=== PATIENT | male | born 1960 | race Caucasian/White ===

== ENCOUNTER → 2018-07-05 13:03 | Outpatient (CLI) | payer OTHER, SELFPAY ==
[2018-07-05 13:01] VITALS: BMI 27.0
--- NOTE | 2018-07-05 13:12 | RAD_ITS ---
STUDY: X-RAY - RIGHT SHOULDER REASON FOR EXAM: Male, 58 years old. Pain following injury. TECHNIQUE: 4 view(s) of the shoulder. COMPARISON: None. FINDINGS: There is mild degenerative arthrosis of the glenohumeral articulation. Normal acromioclavicular joint. Normal acromion. Normal humeral head and visualized proximal humerus. The soft tissue structures are unremarkable. Normal visualized pulmonary apex. RAD/Shoulder min 2 Views IMPRESSION: Mild degree of degenerative changes of the glenohumeral joint. Electronically Signed: Jose Antonio Franco MD at 13:46 EST , Service support ,
== END ==
PROVIDERS: Family Provider Family Medicine; Referring Provider Physician Assistant Surgical; Visit Provider Physician Assistant Surgical
DX: S46.911A Strain of unspecified muscle, fascia and tendon at shoulder and upper arm level, right arm, initial encounter (principal)
CPT/HCPCS: 73030

== ENCOUNTER → 2018-07-30 07:40 | Outpatient (CLI) | payer BC, SELFPAY ==
[2018-07-16 17:56] VITALS: BMI 27.0
[2018-07-26 15:20] VITALS: BMI 29.3
--- NOTE | 2018-07-30 07:44 | RAD_ITS ---
STUDY: X-RAY - ESOPHAGUS (BARIUM SWALLOW) WITH FLUOROSCOPY REASON FOR EXAM: Male, 58 years old. Dysphagia. Feeling of fullness. TECHNIQUE: 16 view(s) of the esophagus were obtained following swallowing of barium. FLUOROSCOPY TIME (if supplied): (0:24) minutes/seconds COMPARISON: None. FINDINGS: There is no demonstrated esophageal foreign body. There is no demonstrated stricture or mucosal abnormality. Normal gastroesophageal junction, without a demonstrated hiatal hernia. The patient ingested a 12 mm tablet of barium without any difficulty. There is atherosclerotic calcification of the aortic arch with tortuosity of the descending aorta. Normal visualized pulmonary parenchyma. Normal visualized osseous structures of the thorax. RAD/Esophagus Only IMPRESSION: Normal plain film x-ray examination (barium swallow) of the esophagus. Electronically Signed: Jose Antonio Franco, at 12:41 EST , Service support ,
== END ==
PROVIDERS: Referring Provider Internal Medicine Gastroenterology; Visit Provider Internal Medicine Gastroenterology
DX: R13.10 Dysphagia, unspecified (principal)
CPT/HCPCS: 74220

== ENCOUNTER → 2022-05-09 | Outpatient (CLI) | payer OTHER, SELFPAY ==
--- NOTE | 2022-05-09 12:49 | ART_ITS ---
Reason For Study: other specified peripheral vascular disease Procedure A bilateral lower extremity continuous wave Doppler with analog waveform analysis,segmental pressures,and ankle brachial indexes without exercise. Left Segmental Pressures Left brachial= 147mmHg. Left thigh = 93mmHg. Left calf = 102mmHg. Left posterior tibial artery = 103mmHg. Left dorsalis pedis artery = 89mmHg. The left dorsalis pedis waveforms are monophasic. The left posterior tibial artery waveforms are biphasic. Right Segmental Pressures Right brachial= 142mmHg. Right posterior tibial artery = 180mmHg. Right dorsalis pedis artery = 177mmHg. Right digit = 63 mmHg. The right dorsalis pedis waveforms are triphasic. The right posterior tibial artery waveforms are triphasic. Indices The right ankle brachial index by the dorsalis pedis is 1.2. The right ankle brachial index by the posterior tibial artery is 1.22. The right digital-brachial index is .43. The left ankle brachial index by the dorsalis pedis is .61. The left ankle brachial index by the posterior tibial artery is .7. VL/Lower Ext Art Exam w/o Exercis Interpretation Summary Right JHONATAN 1.22, normal. Doppler/PVR waveforms of the right leg normal at rest. TBI and digit waveforms diminished, pedal/digit disease vs spasm Left JHONATAN 0.7, moderate arterial insuffiencey. Doppler/PVR waveforms and segment al pressures reveal [id number] disease Ordering Physician: Stevie Eagle Performed By: Tre Arauz, RVT
== END | disposition home or self-care (01) ==
PROVIDERS: Visit Provider Student in an Organized Health Care Education/Training Program
DX: I73.89 Other specified peripheral vascular diseases (principal); G57.52 Tarsal tunnel syndrome, left lower limb; G60.0 Hereditary motor and sensory neuropathy
CPT/HCPCS: 93923

== ENCOUNTER → 2022-06-13 | Outpatient (CLI) | payer OTHER, SELFPAY ==
[2022-06-13 13:05] LABS: Creatinine, Serum 0.89 mg/dL (0.70-1.30); EST Glomerular Filtration Rate 92 mL/min (>60); Est Glom Filt Rate - Afr Amer 112 mL/min (>60)
== END | disposition home or self-care (01) ==
LOC: LAB 11:41
PROVIDERS: Referring Provider Physician Assistant; Visit Provider Physician Assistant
DX: I73.9 Peripheral vascular disease, unspecified (principal)
CPT/HCPCS: 36415; 82565

== ENCOUNTER → 2024-05-01 | Outpatient (CLI) | payer MEDICARE, OTHER, SELFPAY ==
--- NOTE | 2024-05-01 07:02 | EKG12_ITS ---
Test Reason : PRE OP Blood Pressure : */* mmHG Vent. Rate : 85 BPM Atrial Rate : 85 BPM P-R Int : 164 ms QRS Dur : 78 ms QT Int : 348 ms P-R-T Axes : 64 64 7 degrees QTcB Int : 414 ms Normal sinus rhythm Cannot rule out Inferior infarct , age undetermined Abnormal ECG Confirmed by Stevie Page ([id number]), visual effects editor CITLALLI FORREST ([id number]) on 05/02/2024 6:43:34 AM Referred By: Waylon Vaughan Confirmed By: Stevie Page
[2024-05-01 07:48] LABS: Absolute Lymphocyte Count 1.77 X10^3/uL (0.83-4.51); Absolute Neutrophil Count 5.6 X10^3/uL (2.0-7.7); Basophil# 0.07 X10^3/uL; Basophil% 0.8 % (0-1); Eosinophils% 2.4 % (0-5); Hematocrit 44.4 % (40-54); Hemoglobin 14.8 g/dL (13.0-16.5); Lymphocyte # 1.77 X10^3/ul (0.83-4.51); Lymphocyte % 20.8 % (19-41); Mean Corp Hgb Conc 33.3 g/dL (32-36); Mean Corpuscular Hgb 31.2 pg (27.0-32.0); Mean Corpuscular Volume 93.5 fL (80-94); Mean Platelet Vol. 10.6 fl (6.2-12.0); Monocyte# 0.86 X10^3/uL; Monocyte% 10.1 % (0-10); NRBC Flagged by Analyzer 0 % (0-5); Neutrophil # 5.55 X10^3/uL (2.7-7.7); Neutrophil % 65.4 % (47-70); Platelet Count 223 K/mm3 (150-450); RBC Distribution Width CV 12.2 % (11.6-14.6); RBC Distribution Width SD 42.5 fl (35.1-43.9); Red Blood Count 4.75 M/mm3 (4.6-6.2); White Blood Count 8.5 K/mm3 (4.4-11.0)
[2024-05-01 08:11] LABS: Anion Gap 5 (5-15); BUN 18 mg/dL (7-18); BUN/Creat Ratio 19.4 RATIO (10-20); Calcium,Total 9.1 mg/dL (8.5-10.1); Chloride 104 mmol/L (98-107); Creatinine, Serum 0.93 mg/dL (0.70-1.30); EST Glomerular Filtration Rate 87 mL/min (>60); Est Glom Filt Rate - Afr Amer 105 mL/min (>60); Glucose 111 mg/dL (74-106); Potassium 4.4 mmol/L (3.5-5.1); Sodium Level 136 mmol/L (136-145)
== END | disposition home or self-care (01) ==
LOC: PSN 06:56
PROVIDERS: Referring Provider Student in an Organized Health Care Education/Training Program; Visit Provider Student in an Organized Health Care Education/Training Program
DX: Z01.818 Encounter for other preprocedural examination (principal); Z01.810 Encounter for preprocedural cardiovascular examination
CPT/HCPCS: 36415; 80048; 85025; 93005

== ENCOUNTER 2024-05-23 11:41 | Day surgery (SDC) | payer MEDICARE, OTHER, SELFPAY ==
--- NOTE | 2024-05-22 11:17 | PAT.ANE_ITS ---
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 When Was Last Pacemaker Check QUESTION #4 FULL TEXT: You/Your Family Experience fever (hyperthermia) with Anesthesia Last Oral Intake Last Oral intake: Last Oral Intake NPO since Meds taken in AM with sips of water? Meds patient instructed to take am of surgery PONV PONV - felling bucking supervisor: PONV - felling bucking supervisor Female No 05/20/24 11:40 HX of Motion Sickness No 05/20/24 11:40 HX of N/V After Surgery No 05/20/24 11:40 Non-Smoker No 05/20/24 11:40 Duration of Surgery greater Yes 05/20/24 11:40 than 60 minutes Number of Risk Factors 1 05/20/24 11:40 PONV Score Low Risk 05/20/24 11:40 Height & Weight Height & Weight: Anesthesia: Height & Weight Height 5 ft 8 in 07/26/18 15:20 Respiratory Assessment Respiratory Assessment - felling bucking supervisor: Respiratory Tract Infection Hx - felling bucking supervisor Hx Respiratory Tract Infection No 05/20/24 11:40 STOP Sleep Apnea STOP Sleep Apnea - felling bucking supervisor: STOP Sleep Apnea - felling bucking supervisor Hx Hypertension Yes 05/20/24 11:40 Hx Sleep Apnea No 05/20/24 11:40 CPAP No 05/01/14 23:12 BIPAP No 05/01/14 23:12 Do you snore loudly (louder No 05/20/24 11:40 than talking or can be heard Do you often feel tired/ No 05/20/24 11:40 fatigued/ sleepy during daytime? Has anyone observed you stop No 05/20/24 11:40 breathing during sleep? STOP Results Negative 05/20/24 11:40 QUESTION #5 FULL TEXT : Do you snore loudly (louder than talking or can be heard through closed doors)? Tobacco Use History Tobacco Use History - felling bucking supervisor: Tobacco Use History - felling bucking supervisor Tobacco Use Smoking Status Current every day smoker 05/20/24 11:40 Hx Tobacco Use Yes 05/20/24 11:40 Years Smoking Packs Smoked per Day Smoking Cessation Date was within the last 15 years Hx Smoking Cessation Date Hx Smoking Cessation No 05/20/24 11:40 Counseling Hematologic Medial History Hematologic Hx - felling bucking supervisor: Hematologic Medical Hx - machine attendant Hx of Blood Transfusion No 05/20/24 11:40 Hx of Transfusion in last 3 No 05/20/24 11:40 Months Date of Last Transfusion (if within last 3 months) Ever experience any problems No 05/20/24 11:40 with transfusion(s)? Specify any problems Hx of Preganancy in last 3 N/A 05/20/24 11:40 Months Nurse Filling Out Transfusion MGRIKATHERIN 05/20/24 11:40 & Questions: Date: 05/20/24 05/20/24 11:40 Time: 11:42 05/20/24 11:40 Patient unable to answer at this time (ie. confused, unrespo /Reproduction History /Reproductive History - felling bucking supervisor: /Reproductive Hx- felling bucking supervisor Hx Now Gestational Age (in weeks): EDC: Hx Hx Para Hx Section SAB Active Medications Active Medications: Current Medications Generic Name Dose Route Start Last Admin Trade Name Freq PRN Reason Stop Dose Admin Cefazolin Sodium 2 gm/ N/A 20 mls @ 400 mls/hr 05/23/24 13:15 IV 05/23/24 13:17 PREOP ONE [facility] Medical History (Updated 05/20/24 @ 11:51 by Shilpa Guzman) Wears glasses Cancer Alcohol use Arthritis High cholesterol Restless legs Smoker History of echocardiogram History of stress test Cardiology follow-up encounter Hypertension Home Medications ?Medication ?Instructions ?Recorded ?Last Taken ?Type atorvastatin 80 mg tablet 80 mg PO QHS #90 tabs 06/13/22 Unknown Rx amlodipine 2.5 mg tablet 2.5 mg PO DAILY 05/20/24 Unknown History aspirin 81 mg tablet,delayed 81 mg PO QODAY 05/20/24 Unknown History release Allergy/AdvReac Type Severity Reaction Status Date / Time No Known Allergies Allergy Verified 05/20/24 11:35 Surgical History (Updated 05/20/24 @ 11:39 by Shilpa Guzman) History of colonoscopy History of arthroscopy of left knee History of cholecystectomy Social History Smoking Status: Current every day smoker tobacco type: cigarettes alcohol intake: never Audit: Pertinent Findings Pertinent Findings EKG Perinent findings: Test Reason : PRE OP Blood Pressure : */* mmHG Vent. Rate : 85 BPM Atrial Rate : 85 BPM P-R Int : 164 ms QRS Dur : 78 ms QT Int : 348 ms P-R-T Axes : 64 64 7 degrees QTcB Int : 414 ms Normal sinus rhythm Cannot rule out Inferior infarct , age undetermined Abnormal ECG Confirmed by Stevie Page ([id number]), subeditor CITLALLI FORREST ([id number]) on 05/02/2024 6:43:34 AM Referred By: Waylon Vaughan Confirmed By: Stevie Page 05/02/24 0643 Date Stevie Page MD Stress test pertinent findings: 12/05/22 negative/ otis Echo (EF%) pertinent findings: 05/01/24 Interpretation Summary Normal LV size. The estimated ejection fraction is 60 %. No regional wall motion abnormalities noted. Mild (1+) tricuspid valve insufficiency. Pulmonary artery systolic pressure is 34 mmHg. Mild (1+) eccentric mitral valve insufficiency. Bubble contrast study negative for right to left interatrial shunt. Recommendation Anesthesia Recommendation Anesthesia recommendation: OPTIMIZED for anesthesia
[2024-05-23] VITALS (8 sets, daily range): BP systolic 131–146; BP diastolic 80–93; PULSE 88–98; RESP 16; TEMP 36.8–36.9; O2SAT 96–99; BMI 25.4
[2024-05-23] MEDS: 0.9% Normal Saline (1000mL) 1,000 ML 15 ML IV (12:21)
--- NOTE | 2024-05-23 12:49 | PCM.PRE.AN2 ---
ASA Classification* ASA Classification ASA Classification: 2 Assessment & Plan Anesthesia* Anesthesia Assessment Anesthesia Assessment: Discussed sedation and/or anesthesia options, risks, benefits, and alternatives with patient/parents/legal guardian/POA. Questions invited. The patient/parents/legal guardian/POA seems to understand and agrees to proceed with anesthesia plan. Reviewed the physical assessment, medical history, allergy history and patient home medications list prior to surgery/procedure/anesthetic and documented any changes. Performed airway and anesthesia risk assessments. Anesthesia Type Anesthesia Type: General Anesthesia Focused Assessment* Temperature: 98.4 F Pulse Rate: 98 Blood Pressure: 144/93 Respiratory Rate: 16 Pulse Ox: 99 Airway Assessment Mouth opens: >3 cm Mallampati Score: II Focused Labs Anesthesia Preop lab: CBC WBC 8.5 K/mm3 (4.4-11.0) 05/01/24 07:00 RBC 4.75 M/mm3 (4.6-6.2) 05/01/24 07:00 Hgb 14.8 g/dL (13.0-16.5) 05/01/24 07:00 Hct 44.4 % (40-54) 05/01/24 07:00 Plt Count 223 K/mm3 (150-450) 05/01/24 07:00 CHEMISTRY Potassium 4.4 mmol/L (3.5-5.1) 05/01/24 07:00 Sodium 136 mmol/L (136-145) 05/01/24 07:00 Magnesium 1.9 mg/dL (1.8-2.4) 05/05/14 06:16 BUN 18 mg/dL (7-18) 05/01/24 07:00 Creatinine 0.93 mg/dL (0.70-1.30) 05/01/24 07:00 Glucose 111 mg/dL (74-106) H 05/01/24 07:00 POC Glucose 145 mg/dL (70-110) H 05/05/14 11:41 COAG Pre-Assessment Diagnosis/Proposed Procedure Planned Operative Procedure(s): (R) Arthroscopy, Knee with Partial Medial Meniscectomy and Chondroplasty Anesthesia History 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 When Was Last Pacemaker Check QUESTION #4 FULL TEXT: You/Your Family Experience fever (hyperthermia) with Anesthesia Last Oral Intake Last Oral intake: Last Oral Intake NPO since 00:00 05/23/24 12:11 Meds taken in AM with sips of water? Meds patient instructed to take am of surgery PONV PONV - wall to wall carpet installer: PONV - wall to wall carpet installer Female No 05/20/24 11:40 HX of Motion Sickness No 05/20/24 11:40 HX of N/V After Surgery No 05/20/24 11:40 Non-Smoker No 05/20/24 11:40 Duration of Surgery greater Yes 05/20/24 11:40 than 60 minutes Number of Risk Factors 1 05/20/24 11:40 PONV Score Low Risk 05/20/24 11:40 Height & Weight Height & Weight: Anesthesia: Height & Weight Height 5 ft 8 in 05/23/24 12:11 Weight: 75.75 kg 05/23/24 12:11 Body Mass Index (BMI) 25.4 05/23/24 12:11 Respiratory Assessment Respiratory Assessment - wall to wall carpet installer: Respiratory Tract Infection Hx - wall to wall carpet installer Hx Respiratory Tract Infection No 05/20/24 11:40 STOP Sleep Apnea STOP Sleep Apnea - wall to wall carpet installer: STOP Sleep Apnea - wall to wall carpet installer Hx Hypertension Yes 05/20/24 11:40 Hx Sleep Apnea No 05/20/24 11:40 CPAP No 05/01/14 23:12 BIPAP No 05/01/14 23:12 Do you snore loudly (louder No 05/20/24 11:40 than talking or can be heard Do you often feel tired/ No 05/20/24 11:40 fatigued/ sleepy during daytime? Has anyone observed you stop No 05/20/24 11:40 breathing during sleep? STOP Results Negative 05/20/24 11:40 QUESTION #5 FULL TEXT : Do you snore loudly (louder than talking or can be heard through closed doors)? Tobacco Use History Tobacco Use History - wall to wall carpet installer: Tobacco Use History - wall to wall carpet installer Tobacco Use Smoking Status Current every day smoker 05/20/24 11:40 Hx Tobacco Use Yes 05/20/24 11:40 Years Smoking Packs Smoked per Day Smoking Cessation Date was within the last 15 years Hx Smoking Cessation Date Hx Smoking Cessation No 05/20/24 11:40 Counseling Hematologic Medial History Hematologic Hx - wall to wall carpet installer: Hematologic Medical Hx - interactive media marketing strategist Hx of Blood Transfusion No 05/20/24 11:40 Hx of Transfusion in last 3 No 05/20/24 11:40 Months Date of Last Transfusion (if within last 3 months) Ever experience any problems No 05/20/24 11:40 with transfusion(s)? Specify any problems Hx of Preganancy in last 3 N/A 05/20/24 11:40 Months Nurse Filling Out Transfusion MGRIFFITH 05/20/24 11:40 & Questions: Date: 05/20/24 05/20/24 11:40 Time: 11:42 05/20/24 11:40 Patient unable to answer at this time (ie. confused, unrespo /Reproduction History /Reproductive History - wall to wall carpet installer: /Reproductive Hx- wall to wall carpet installer Hx Now Gestational Age (in weeks): EDC: Hx Hx Para Hx Section SAB Active Medications Active Medications: Current Medications Generic Name Dose Route Start Last Admin Trade Name Freq PRN Reason Stop Dose Admin Cefazolin Sodium 2 gm/ N/A 20 mls @ 400 mls/hr 05/23/24 13:15 IV 05/23/24 13:17 PREOP ONE Sodium Chloride 1,000 mls @ 15 mls/hr 05/23/24 12:05 05/23/24 12:21 IV 05/29/24 01:24 15 mls/hr .Q48H ANETTE Administration Protocol PFSH Medical History Wears glasses Cancer Alcohol use Arthritis High cholesterol Restless legs Smoker History of echocardiogram History of stress test Cardiology follow-up encounter Hypertension Home Medications ?Medication ?Instructions ?Recorded ?Last Taken ?Type atorvastatin 80 mg tablet 80 mg PO QHS #90 tabs 06/13/22 Unknown Rx amlodipine 2.5 mg tablet 2.5 mg PO DAILY 05/20/24 05/23/24 History aspirin 81 mg tablet,delayed 81 mg PO QODAY 05/20/24 Unknown History release Allergy/AdvReac Type Severity Reaction Status Date / Time No Known Allergies Allergy Verified 05/23/24 12:10 Surgical History History of colonoscopy History of arthroscopy of left knee History of cholecystectomy Social History Smoking Status: Current every day smoker tobacco type: cigarettes alcohol intake: never Review of Systems (Anesthesia) ROS Narrative System reviewed and no additional complaints, except as documented.
[2024-05-23] MEDS: Cefazolin 2 GM in Syringe IV (13:45)
[2024-05-23] MEDS: Epinephrine (1 mg/ml) 1 MG/ML VIAL (14:03)
[2024-05-23] MEDS: Bupivacaine 0.25% 30 ML Vial (14:03)
[2024-05-23] MEDS: Bacitracin 500 UNITS/GM PACKET ×3 (14:07→14:13)
--- NOTE | 2024-05-23 14:19 | PCM.OPRPT ---
Operative Report (Standard) Operative Information Date of Procedure: 05/23/24 Pre-Operative Diagnosis: 1. Right knee medial meniscus tear 2. Right knee chondromalacia Post-Operative Diagnosis: 1. Right knee medial meniscus tear 2. Right knee chondromalacia Surgery/Procedure Performed: Right knee arthroscopic partial medial meniscectomy and chondroplasty of medial femoral condyle glass lathe operator: No Type of Anesthesia: General RN Documented Start/Stop Times: Operation Date: 05/23/24 13:15 Case Time Into Pre-Op 05/23/24 12:02 Out of Pre-Op 05/23/24 13:35 Anesthesia Start 05/23/24 13:38 Into Room 05/23/24 13:38 Procedure Start 05/23/24 13:55 Procedure End 05/23/24 14:10 Anesthesia End 05/23/24 14:15 Out of Room 05/23/24 14:15 Procedure Start Time: 13:55 Procedure Stop Time: 14:10 Select all DRAINS/GRAFTS/IMPLANTS that apply: None Estimated Blood Loss: 5 cc Fluids Replaced: Per anesthesia record Specimen collected: No Description of surgery: Patient was identified in the preoperative holding area the day of surgery by name, medical record number, and date of . The operative extremity was marked. All questions were answered to the patient's satisfaction. At time of his procedure, patient was brought to the operative suite and positioned supine on a standard operating table. General anesthesia was induced and LMA placed. All bony prominences were well-padded. Well-leg harrison was placed beneath the patient's left thigh. A well-padded pneumatic tourniquet was applied to the right upper thigh. Circumferential arthroscopic leg harrison was placed around the patient's right thigh. We dropped the for the bed 90 degrees. We prepped and draped the right lower extremity in a normal, sterile orthopedic fashion. We then performed a timeout confirming the side, site, and operation to be performed. No concerns were voiced and we elected to proceed with surgery. 2 g Ancef was administered IV prior to tourniquet placed by anesthesia staff. Right lower extremity was then exsanguinated with Esmarch bandage. Tourniquet is inflated to 250 mmHg for 11 minutes. # Was removed. Standard anterolateral portal established 11 blade scalpel. Blunt tipped trocar was used to enter the knee joint. Arthroscopic cannula was then used to fill the right knee joint with normal saline with epinephrine. Arthroscope was introduced. Patellofemoral joint was examined. Central grade II chondromalacia was noted in the patella. The trochlea appeared pristine. Medial and lateral gutters were unremarkable. Medial compartment was then entered with valgus stress. Anterior medial portal was then established under direct visualization. Probing the medial meniscus demonstrated a displaced flap tear along the mid to posterior body of the medial meniscus. This was resected to a stable rim of meniscus with a combination of baskets and shaver. Grade III chondromalacia was noted the medial femoral condyle with unstable chondral edges. This was debrided to a stable rim of cartilage with the arthroscopic shaver. Intercondylar notch was then entered and appeared pristine. Lateral compartment was entered with a varus stress and appeared pristine. The knee was then thoroughly lavaged with normal saline solution. Instruments were removed. Tourniquet was deflated. Intra-articular block was administered with 30 cc total 0.25% bupivacaine with epinephrine. Portal sites were closed with interrupted [id number] 3-0 nylon suture. Bulky sterile compression dressing is applied. Small abrasions over the anterior patella and anterior ibrahim were dressed with bacitracin ointment and Xeroform from remote trauma. Patient was then repositioned in the supine position. He was safely explained the operative suite and awakened from anesthesia. He tolerated the procedure well without apparent complication. Was transferred to his gurney and subsequently to PACU in stable condition. Postoperative plan: Weightbearing as tolerated right lower extremity. Range of motion as tolerated. Crutches as needed. Physical therapy to start in 1 week. Oxycodone prescription for provided. [id number] NSAIDs and Tylenol encouraged. Aspirin 81 mg twice daily for DVT prophylaxis x 2 weeks Follow-up in 2 weeks for suture removal. He was advised to apply bacitracin ointment to his abrasions to mitigate risk of soft tissue infection. Surgical Findings: Displaced meniscal flap tear medial meniscus. Stable meniscus following debridement. Grade III chondromalacia medial femoral condyle. Grade II chondromalacia central patella. Complications Complications: No Admit VTE Documentation VTE Present on Admission: No VTE Mechan Device Prophylaxis: SCD's and Thigh High JACKSON Hose VTE Pharm Prophylaxis ordered?: Yes
--- NOTE | 2024-05-23 14:21 | PCM.POST.ANE ---
Anesthesia: Postop Eval I Current Vital Signs Temperature: 98.2 F Pulse Rate: 88 Blood Pressure: 131/80 Respiratory Rate: 16 Pulse Ox: 97 Oxygen Delivery Method: Room Air Assessment Airway patent: Yes Spontaneous unlabored respirations: Yes Mental status: Awake and Calm nausea: No Vomiting: No Anesthesia Complication: No Fluid Hydration Crystalloid volume administer (ml): 600 Total IV fluid infused: 600 Progress Note Anesthesia document: Postop Eval 1 completed: Yes
--- NOTE | 2024-05-23 15:15 | POSTOPAN2_ITS ---
Anesthesia Postop Eval I Sum Postop Eval Completion status Anesthesia document: Postop Eval 1 completed: Yes Anesthesia Postop Eval I Summary Anesthesia Postop Eval I Summary: Anesthesia Postop Eval I: Assessment Summary Airway patent Yes 05/23/24 14:22 CANTEEN MANAGER.[email or web address] Spontaneous unlabored Yes 05/23/24 14:22 CANTEEN MANAGER.[email or web address] respirations Mental status Awake,Calm 05/23/24 14:22 CANTEEN MANAGER.JANAEOBVadim nausea No 05/23/24 14:22 CANTEEN MANAGER.JANAEOBVadim Vomiting No 05/23/24 14:22 CANTEEN MANAGER.JANAEOBVadim Anesthesia Postop Eval I: Fluid Summary Crystalloid volume administer 600 05/23/24 14:22 CANTEEN MANAGER.SKOBY (ml) Colloids volume administered ( ml) Blood Product volume administered (ml) Total IV fluid infused 600 05/23/24 14:22 CANTEEN MANAGER.PARTHA Anesthesia Postop Eval I: Summary Notes Anesthesia Complication No 05/23/24 14:22 CANTEEN MANAGER.PARTHA Anesthesia Complication Comment: Post-operative progress note Anesthesia: Postop Eval II Evaluation Mental status: Awake Pain Level: 0 nausea: No Vomiting: No
--- NOTE | 2024-05-23 15:15 | PCM.POSTANE2 ---
Anesthesia Postop Eval I Sum Postop Eval Completion status Anesthesia document: Postop Eval 1 completed: Yes Anesthesia Postop Eval I Summary Anesthesia Postop Eval I Summary: Anesthesia Postop Eval I: Assessment Summary Airway patent Yes 05/23/24 14:22 PATIENT ACCOUNTS MANAGER.[email or web address] Spontaneous unlabored Yes 05/23/24 14:22 PATIENT ACCOUNTS MANAGER.PARTHA respirations Mental status Awake,Calm 05/23/24 14:22 PATIENT ACCOUNTS MANAGER.JANAEOBVadim nausea No 05/23/24 14:22 PATIENT ACCOUNTS MANAGER.JANAEOBVadim Vomiting No 05/23/24 14:22 PATIENT ACCOUNTS MANAGER.JANAEOBVadim Anesthesia Postop Eval I: Fluid Summary Crystalloid volume administer 600 05/23/24 14:22 PATIENT ACCOUNTS MANAGER.SKOBY (ml) Colloids volume administered ( ml) Blood Product volume administered (ml) Total IV fluid infused 600 05/23/24 14:22 PATIENT ACCOUNTS MANAGER.PARTHA Anesthesia Postop Eval I: Summary Notes Anesthesia Complication No 05/23/24 14:22 PATIENT ACCOUNTS MANAGER.PARTHA Anesthesia Complication Comment: Post-operative progress note Anesthesia: Postop Eval II Evaluation Mental status: Awake Pain Level: 0 nausea: No Vomiting: No
[2024-05-23] MEDS: Acetaminophen 500 MG Tablet 1000 MG PO (15:21)
== END 2024-05-23 15:36 | disposition home or self-care (01) ==
LOC: SDC 11:41 → AC 11:43
PROVIDERS: Referring Provider Student in an Organized Health Care Education/Training Program; Visit Provider Student in an Organized Health Care Education/Training Program
PROC: (CPT 29870; principal; 2024-05-23 12:55)
DX: S83.241A Other tear of medial meniscus, current injury, right knee, initial encounter (principal); M94.261 Chondromalacia, right knee; I10 Essential (primary) hypertension; E78.00 Pure hypercholesterolemia, unspecified; M17.11 Unilateral primary osteoarthritis, right knee; E66.3 Overweight; Z79.899 Other long term (current) drug therapy; Z79.82 Long term (current) use of aspirin; W19.XXXA Unspecified fall, initial encounter; Z68.26 Body mass index [BMI] 26.0-26.9, adult
CPT/HCPCS: 29881; 01400; J2405